=== PATIENT | female | born 1980 | race Caucasian/White ===

== ENCOUNTER 2020-04-11 13:18 | Inpatient (IN) | payer SELFPAY ==
[~2020-04-11] VITALS: Ht 160 cm; Wt 58.7 kg
[2020-04-11] VITALS (7 sets, daily range): BP systolic 88–105; BP diastolic 55–71
--- NOTE | 2020-04-11 13:28 | NUR ---
PATINT AMBULATED TO ROOM WITH SLOW STEADY GAIT AND PHYSICIAN NOTIFIED OF PATIENT STATUS
--- NOTE | 2020-04-11 14:42 | NUR ---
IV ACCESS OBAINTED, LABS AND URINE SPECIMEN OBTAINED AWAITING LAB FOR 2nd SET OF BC PRIOR TO STARTING ABT. PT AWARE OF PLANNED IV ABT AND SURGICAL CONSULT.
[2020-04-11] MEDS ORDERED: PENICILLN VK500 M1 PO (14:54)
[2020-04-11] MEDS ORDERED: IBUPROFEN600 MG PO (14:55)
[2020-04-11 15:08] LABS: HEMATOCRIT 37.8 % (37.0-47.0); HEMOGLOBIN 12.3 g/dl (12.0-16.0); IMMATURE GRANULOCYTES 0.4 % (0.0-5.0); MEAN CORPUSCULAR HGB 31.8 pG CALC (26.0-32.0); MEAN CORPUSCULAR HGB CONC 32.5 g/dL CAL (32.0-36.0); NEUT# 14.94 thou/uL (2.00-7.15); RED BLOOD COUNT 3.87 mill/uL (4.20-5.60); RED CELL DISTRI WIDTH 12.6 % (11.5-15.5)
[2020-04-11 15:15] LABS: MEAN CELL VOLUME 97.7 fL CALC (80.0-100.0)
[2020-04-11 15:28] LABS: ALBUMIN 4.2 g/dL (3.2-5.0); ALKALINE PHOSPHATASE 59 u/l (38-126); ANION GAP 10 (6-22 (CALC)); BILIRUBIN, TOTAL 0.5 mg/dL (0.0-1.4); BUN 8 mg/dL (7-17); BUN/CREATININE RATIO 12 (12-20 (CALC)); CARBON DIOXIDE 28 mmol/l (22-30); CHLORIDE 101 mmol/l (95-108); CREATININE 0.6 mg/dL (0.5-1.0); GFR > 60 ML/MIN (>=60 (CALC)); GFR FOR AFR.AMER. > 60 ML/MIN (>=60 (CALC)); POTASSIUM 3.8 mmol/l (3.5-5.1); SGOT/AST 19 u/l (14-36); SODIUM 135 mmol/l (137-146); TOTAL PROTEIN 7.2 g/dL (6.3-8.2)
[2020-04-11 15:30] LABS: HCG SERUM/URINE (NEG/POS) NEGATIVE (NEGATIVE)
--- NOTE | 2020-04-11 15:55 | NUR ---
pt to radiology awaiting return
--- NOTE | 2020-04-11 16:28 | NUR ---
PT AWARE OF PNEDING SURGERY AND ADMISSION, STATES NO FOOD SINCE NOON YETSERDAY. DRINKING A AT BEDSIDE REMOVED FROM BEDSIDE ABOUT 30 MIN AGO
--- NOTE | 2020-04-11 17:31 | NUR ---
WARM BLANKET APPLIED AFTER EKG DONE PT AWARE OF PENDING OR THIS PM REMAINS NPO
--- NOTE | 2020-04-11 18:04 | NUR ---
MEDICATED WITH PEPCID ORDERED, SIGNIFICANT OTHER AT BEDSIDE
--- NOTE | 2020-04-11 18:18 | NUR ---
OR AT BEDSIDE TO TAKE PT TO OPERATING ROOM
--- NOTE | 2020-04-11 18:24 | NUR ---
PT LEFT UNIT VIA STRETCHER WITH OR STAFF.
--- NOTE | 2020-04-11 20:11 | NUR ---
ADMISSION AND PHYSICAL ASSESMENT COMPLETE. PT CURRENTLY DENIES PAIN OR DISCOMFORT. SEE E-MAR FOR MEDICATION ADMINSITRATION. PT DENIES ANY NEEDS AT THIS TIME. PLAN OF CARE REVIEWED, PT DENIES QUESTIONS, VERBALIZES UNDERSTANDING. ITEMS WITHIN REACH, BED LOCKED IN LOW POSITION W/ BEDRAILS UP X2. CALL HERNANDEZ WITHIN REACH, AGREES TO CALL PRN.
--- NOTE | 2020-04-11 20:11 | NUR ---
PT ARRIVES AT 2010 FROM PACU, BEDSIDE REPORT RECEIVED FROM Jeancarlos CADE RN.
[2020-04-12] VITALS (7 sets, daily range): BP systolic 88–107; BP diastolic 50–68
--- NOTE | 2020-04-12 00:10 | NUR ---
PT APPEARS TO BE SLEEPING COMFORTABLY, NO APPARENT DISTRESS, RESPIRATIONS REGULAR AND UNLABORED. ITEMS REMAIN WITHIN REACH, BED REMAINS LOCKED IN LOW POSITION W/ BEDRAILS UP X2. CALL HERNANDEZ REMAINS WITHIN REACH.
--- NOTE | 2020-04-12 05:55 | NUR ---
ASSESMENT UNCHANGED FROM BEGINING OF SHIFT BASELINE ASSESMENT. AM HEMODYNAMICS WITHIN BASELINE.PT AFEBRILE. PT DENIES NEEDS AT THIS TIME. ITEMS REMAIN WITHIN REACH, BED REMAINS LOCKED IN LOW POSITION W/ BEDRAILS UP X2.CALL HERNANDEZ REMAINS WITHIN REACH, AGREES TO CALL PRN.
--- NOTE | 2020-04-12 07:52 | NUR ---
RECIEVED REPORT FROM CIELO DUMONT. PT RESTING IN LOW FOWLERS POSITION UPON ENTERING ROOM. INTRODUCED SELF TO PT AND DISCUSSED POC. PT IS A/O X3. ASSESSMENT AND BP OBTAINED AT THIS TIME. BP 94/68, HR 71, O2 98% ON ROOM AIR. RESPRIATIONS ARE EVEN AND UNLABORED WITH NO SIGNS OF DISTRESS NOTED. LUNG SOUNDS ARE CLEAR. HEART RHYTHM IS NORMAL. BOWEL SOUNDS ARE ACTIVE IN ALL QUADRANTS, LAST REPORTED BM 04/10/20. RADIAL AND PEDAL PULSES ARE STRING WITH NORMAL CAPILLARY REFILL. #20 IN LAC RUNNING WITH NS PER ORDER, SITE APPEARS HEALTHY AND PATENT. PT COMPLAINS OF 6/10 PAIN OF LEFT LABIA. INFORMED PT THAT DUE TO LOW BP PAIN MEDICATION WAS UNAVAILABLE AT THIS TIME. PT VERBAILZED UNDERSTANDING. DRESSING OF LEFT LABIA REMAINS CDI AT THIS TIME. PT DENIES ANY OTHER PAINS OR DISCOMFORTS AT THIS TIME. ALL SAFETY PRECAUTIONS ARE IN PLACE WITH CALL LIGHT IN REACH. WILL CONTINUE TO MONITOR
--- NOTE | 2020-04-12 11:14 | NUR ---
REASSESSMENT OF PAIN AFTER ADMINISTRATION OF ULTRAM RESUTLING IN 11/18. PT REPORTS DISCOMFORT BUT IS STILL BARABLE. RESPIRATIONS ARE EVEN AN DUNLABROE DWIHT NO SIGNS OF DISTRESS NOTED. ALL SAFETY PRECAUTIONSA RE IN PLACE. WILL CONTINUE TO MONITOR
--- NOTE | 2020-04-12 12:32 | NUR ---
PT RESTING IN SEMI FOWLERS POSITION. RESPIRATIONS ARE EVEN AND UNLABORED WITH NO SIGNS OF DISTRESS NOTED. DRESSING REMAINS CDI AT THIS TIME. ALL SAFETY PRECAUTIONS ARE IN PLACE WITH CALL LIGHT IN REACH. WILL CONTINUE TO MONITOR
--- NOTE | 2020-04-12 16:12 | NUR ---
PT RESITNG IN SEMI FOWLERS PSOTION UPON ENTERING ROOM. REPSIRATIONS ARE EVEN AND UNLABROED WITH NO SIGNS OF DISTRESS NOTED. DRESSING REMAINS CDI AT THSI TIME. PT REQUEST SODA. SODA TO BE GIVEN. ALL SAEFTY PRECAUTIONS ARE IN PLACE. WILL CONTINUE TO MONITOR
--- NOTE | 2020-04-12 19:00 | NUR ---
REPORT RECEIVED FROM Tera MAYO LPN, CARE OF PT ASSUMED AT THIS TIME.
--- NOTE | 2020-04-12 20:45 | NUR ---
PHYSICAL ASSESMENT COMPLETE. PT CURRENTLY DENIES PAIN OR DISCOMFORT. SCHEDULED MEDICATIONS AND PRN MEDICATION ADMINISTERED, SEE E-MAR. PT DENIES ANY NEEDS AT THIS TIME. PLAN OF CARE REVIEWED, PT DENIES QUESTIONS, VERBALIZES UNDERSTANDING. ITEMS WITHIN REACH, BED LOCKED IN LOW POSITION W/ BEDRAILS UP X2. CALL HERNANDEZ WITHIN REACH, AGREES TO CALL PRN.
--- NOTE | 2020-04-13 00:45 | NUR ---
ASSISTED WITH LEFT LABIA DRESSING COMPLETED BY Oscar SHARMA RN. PACKING REMOVED. MODERATE SEROUSANGUINOUS DRAINAGE TO DRESSING. INCISION IRRIGATED WITH NORMAL SALINE. NO ACTIVE DRAINING FROM SURGICAL SITE. NS MOISTENED, FLUFFED, 4X4 GENTLY PACKED INTO OPENING. ABD PAD AND PERIPAD PLACED OVERTOP, SECURED WITH MESH PANTY. PT TOLERATED DRESSING WITHOUT VISIBLE DISCOMFORT. DENIES PAIN.
--- NOTE | 2020-04-13 01:00 | NUR ---
PT IN ROOM RESTING. NO COMPLAINTS OF PAIN.
[2020-04-13 04:45] VITALS: BP 92/62
--- NOTE | 2020-04-13 06:48 | NUR ---
REPORT RECEIVED FROM CIELO DUMONT. PT RESTING IN BED, FREE FROM DISTRESS. SAFETY PRECAUTIONS IN PLACE. WILL CONTINUE TO MONITOR.
--- NOTE | 2020-04-13 08:56 | NUR ---
PT RESTING IN BED, ALERT AND ORIENTED. RESPIRATIONS EVEN AND UNLABORED ON RA. LUNGS SOUND CLEAR. PEDAL PULSES ARE STRONG. PT DENIES ANY PAIN OR DISCOMFORT AT THIS TIME. PT DOES COMPLAIN OF NAUSEA, AND VOMITTING GRAPES FROM BREAKFAST. PT STATES "I LOVE FOOD AND I NEED TO BE ABLE TO EAT. I WANT TO GO HOME TODAY. I DON'T UNDERSTAND WHY I'M FEELING LIKE THIS, I LOVE FOOD I JUST WANT TO EAT" HAND CROCHETER ALLOWED PT TO VERBALIZE CONCERNS, EDUCATED PT ON SIDE EFFECTS OF IV ABX. PT TO BE MEDICATED PER EMAR ORDERS. SAFETY PRECAUTIONS IN PLACE. WILL CONTINUE TO MONITOR.
[2020-04-13 09:55] VITALS: BP 98/54
--- NOTE | 2020-04-13 11:15 | NUR ---
MD AT BEDSIDE DISCUSSING PLAN OF CARE
--- NOTE | 2020-04-13 14:02 | NUR ---
PT RESTING IN BED, READY FOR WOUND TO BE DRESSED. WOUND TO LEFT LABIA CLENSED WITH SALINE AND PACKED MOIST TO DRY PER ORDERS. PT PROVIDED WITH MESH PANTIES AND BLADDER PAD. PT TOLERATED WELL. SAFETY PRECAUTIONS IN PLACE. WILL CONTINUE TO MONITOR.
[2020-04-13 15:15] VITALS: BP 106/65
--- NOTE | 2020-04-13 16:21 | NUR ---
PT RESTING IN BED NO S/S OF DISTRESS AT THIS TIME. SAFETY PRECAUTIONS IN PLACE. WILL CONTINUE TO MONITOR.
--- NOTE | 2020-04-13 16:35 | NUR ---
PT CALLED NURSES STATION TO REPORT PACKING FALLING OUT OF WOUND. UPON ENTERING PT ROOM PT RESTING IN BED. PT SATES "THE PACKING FELL OUT WHEN I WHEN TO THE BATHROOM SO I PULLED IT THE REST OF THE WAY OUT" NEW DRESSING APPLIED AND SECURED PER ORDERS. SAFETY PRECAUTIONS IN PLACE. WILL CONTINUE TOP MONITOR.
[2020-04-13 19:35] VITALS: BP 93/63
--- NOTE | 2020-04-14 02:29 | NUR ---
PT RESTING IN ROOM, STATED HER TREATMENT TO LABIA WAS JUST DONE AND TO "NOT MESS WITH IT" NO COMPLAINTS OF PAIN AT THIS TIME. KEIRY REES.
[2020-04-14 04:20] VITALS: BP 106/74
[2020-04-14 04:50] LABS: MEAN CELL VOLUME 99.7 fL CALC (80.0-100.0); MEAN CORPUSCULAR HGB 31.1 pG CALC (26.0-32.0); MEAN CORPUSCULAR HGB CONC 31.2 g/dL CAL (32.0-36.0); RED BLOOD COUNT 2.96 mill/uL (4.20-5.60); RED CELL DISTRI WIDTH 12.7 % (11.5-15.5)
[2020-04-14 05:00] LABS: ANION GAP 6 (6-22 (CALC)); BUN 9 mg/dL (7-17); BUN/CREATININE RATIO 16 (12-20 (CALC)); CARBON DIOXIDE 28 mmol/l (22-30); CHLORIDE 106 mmol/l (95-108); CREATININE 0.6 mg/dL (0.5-1.0); GFR > 60 ML/MIN (>=60 (CALC)); GFR FOR AFR.AMER. > 60 ML/MIN (>=60 (CALC)); POTASSIUM 4.2 mmol/l (3.5-5.1); SODIUM 136 mmol/l (137-146)
[2020-04-14 05:10] LABS: HEMATOCRIT 29.5 % (37.0-47.0); HEMOGLOBIN 9.2 g/dl (12.0-16.0)
--- NOTE | 2020-04-14 07:00 | NUR ---
REPORT RECEIVED FROM JOSE FERNÁNDEZ. PT RESTING IN BED NO S/S OF DISTRESS AT THIS TIME. WILL CONTINUE TO MONITOR.
[2020-04-14 07:10] VITALS: BP 117/53
[2020-04-14 07:48] VITALS: BP 125/59
--- NOTE | 2020-04-14 08:06 | NUR ---
PT RESTING IN BED, ALERT AND ORIETNED. RESPIRATIONS ARE EVEN AND UNLABORED ON RA. LUNGS SOUND CLEAR. PEDAL PULSES ARE STRONG. PT REPORTS FEELING A DISCOMFORT IN HER LEFT LABIA "IT FEELS UNCOMFORTABLE FROM THE DRESSING NOT BEING CHANGED IN SO LONG, LIKE IT'S IRRITATED." DRESSING TO BE CHANGED PER ORDERS. SAFETY PRECAUTIONS IN PLACE. WILL CONTINUE TO MONITOR.
--- NOTE | 2020-04-14 10:05 | NUR ---
S: KACIE CRABTREE is a 39 F who presents with LEFT LABIA SSTI. She has a history of MRSA WOUND CULTURE. All medications in patient's chart were reviewed. Patient is on ZOSYN WE WILL D/C . Vancomycin ordered for pharmacy to dose. Start Vancomycin 1250MG IV Q6H. Vancomycin trough is drawn before the 4th dose on 04/14/202029. Vancomycin goal trough is between <10-15 mcg/ml>. Pharmacy will follow and or advise on antibiotics use as needed. MARINA PARKERD
--- NOTE | 2020-04-14 11:45 | NUR ---
PT SITTING UP IN BED EATING LUNCH. NO S/S OF DISTRESS AT THIS TIME. SAFETY PRECAUTIONS IN PLACE. WILL CONTINUE TO MONITOR.
[2020-04-14 15:24] VITALS: BP 107/71
--- NOTE | 2020-04-14 16:30 | NUR ---
PT RESTING IN BED VISITING WITH FAMILY
[2020-04-14 19:00] VITALS: BP 111/66
--- NOTE | 2020-04-14 19:51 | NUR ---
PT MEDICATED WITH ULTRAM PRIOR TO DRESSING CHANGE. PT DENIES ANY PAIN OR DISCOMFORT AT THIS TIME. NO APPARENT DISTRESS NOTED. PT DENIES ANY OTHER CURRENT WANTS OR NEEDS. CALL LIGHT WITHIN REACH. WILL CONTINUE TO MONITOR.
--- NOTE | 2020-04-14 20:45 | NUR ---
DRESSING CHANGED PER ORDERS. PT TOLERATED WELL. SMALL AMOUNT OF SEROUS DRAINAGE NOTED TO ABD PAD. NO ODOR NOTED. PT DENIES ANY OTHER WANTS OR NEEDS AT THIS TIME. CALL LIGHT WITHIN REACH. WILL CONTINUE TO MONITOR.
--- NOTE | 2020-04-15 00:26 | NUR ---
PT RESTING IN BED WITH EYES CLOSED. NO APPARENT DISTRESS NOTED. RESPIRATIONS EVEN AND UNLABORED. CALL LIGHT WITHIN REACH. WILL CONTINUE TO MONITOR.
[2020-04-15 04:00] VITALS: BP 99/62
[2020-04-15 07:41] VITALS: BP 124/58
--- NOTE | 2020-04-15 07:41 | NUR ---
PT SITTING IN BED. A&O X3. NO DISTRESS NOTED. PT DENIES ANY PAIN AT THIS TIME. DRESSING TO BE CHANGED. PT EAGER TO BE DISCHARGED, EXPLAINED TO PT THAT NO D/C ORDERS ARE IN THE COMPUTER AND THE PHYSICIAN WOULD NEED TO COME SEE HER BEFORE. PT STATES "HE SAID HE WOULD GET ME OUT OF HERE BY 9 AM". NO OTHER NEEDS AT THIS TIME. ASSESSMENT COMPLETED. DISCUSSED POC. CALL LIGHT IN REACH. CONTINUE TO MONITOR.
[2020-04-15] MEDS ORDERED: BACTRIM DS1 TAB PO (08:42)
--- NOTE | 2020-04-15 09:20 | NUR ---
Discharge instructions given. Patient verbalizes understanding of same. Discharged in stable condition via Ambulatory to Home with spouse. All belongings sent with pt.
== END 2020-04-15 09:20 | disposition home or self-care (01) | DRG 747 ==
LOC: ED 13:18 → ED-I 16:21 → ED 16:32 → MS2 16:33
PROVIDERS: Family Medicine; ADMIT Surgery; ATTEND Surgery
PROC: 0U9M0ZZ Drainage of Vulva, Open Approach (ICD-10-PCS; principal; 2020-04-11)
DX: N76.4 Abscess of vulva (principal); F17.200 Nicotine dependence, unspecified, uncomplicated; B95.62 Methicillin resistant Staphylococcus aureus infection as the cause of diseases classified elsewhere; Z20.828 Contact with and (suspected) exposure to other viral communicable diseases
CPT/HCPCS: J3370; Q9967